=== PATIENT | female | born 1955 ===

== ENCOUNTER 2020-11-05 17:57 | Emergency (ER) | payer OTHER ==
[~2020-11-05] VITALS: Ht 162.6 cm; Wt 50.0 kg
[2020-11-05 18:12] VITALS: BP 124/50
== END 2020-11-05 18:09 | disposition home or self-care (01) ==
LOC: EDSEX 17:57 → ED 18:00
DX: Z02.9 Encounter for administrative examinations, unspecified (principal)
CPT/HCPCS: 93005